=== PATIENT | female | born 1950 | race Caucasian/White ===

== ENCOUNTER → 2017-03-29 | Outpatient (CLI) | payer OTHER | END | disposition home or self-care (01) | LOC: C.LABSPEC 17:37 | PROVIDERS: ATTEND Urology | DX: N30.10 Interstitial cystitis (chronic) without hematuria (principal); N39.0 Urinary tract infection, site not specified ==

== ENCOUNTER 2025-02-05 10:11 | Observation (INO) ==
--- NOTE | 2025-02-05 10:25 | Emergency Department Note ---
Impression & Plan Atrial fibrillation with RVR, Dizziness ED Provider Note NAME: KWADWO FONTANEZ AGE: 74 SEX: F : 1950 ARRIVES VIA: Ambulance INFORMANT: Patient ED PROVIDER(S): Félix Whitney DO CHIEF COMPLAINT: Dizzy and palpitations HPI: Patient is a 74-year-old female who presents to the ER with a past medical history of GERD, hypertension and hyperlipidemia who presents to the ER for dizziness which has been off and on for the past 4 weeks. She notes it comes and goes and does have a history of Mnire's. She notes that today she felt her heart racing this morning. She went to her PCP was found to be in A-fib. She was brought in by EMS. She was going in and out of [facility] on multiple occasions. Denies any chest pain or shortness of breath. No belly pain. No nausea, vomiting, or diarrhea. No dysuria, urgency, or frequency. ADDITIONAL HISTORY OBTAINED: Per HPI Chronic Medical/Social Conditions Affecting Care: Per HPI PAST MEDICAL HISTORY:See Below PAST SURGICAL HISTORY:See Below FAMILY HISTORY:See Below SOCIAL HISTORY:See Below HOME MEDICATIONS:See Below ALLERGIES:See Below VITALS:See Below PHYSICAL EXAMINATION: GENERAL: Sitting up in bed, alert, well appearing, well nourished, no distress, non-toxic EYE EXAM: normal conjunctiva. PERRL and EOM's grossly intact. OROPHARYNX: mucous membranes are moist NECK: supple, no nuchal rigidity, no adenopathy, non-tender LUNGS: Clear to auscultation. Normal chest wall mechanics HEART: no murmurs, S1 normal and S2 normal ABDOMEN: abdomen soft, non-tender, normo-active bowel sounds, no masses, no rebound or guarding. UPPER EXTREMITIES: upper extremities are grossly normal. LOWER EXTREMITIES: No pitting edema. NEURO EXAM: Normal sensorium, cranial nerves II-XII grossly intact, normal speech, no gross weakness of arms, no gross weakness of legs. MEDICAL DECISION MAKING: Patient is a 74-year-old female who presents ER for above-stated complaint. IV was established and blood work was obtained. Additional history from EMS notes the patient has been in and out of A-fib several times on transport. Labs showed no significant leukocytosis or anemia. BMP along with LFTs bilirubin and lipase is unremarkable. Troponin was negative. TSH unremarkable. EKG consistent with A-fib with RVR. Patient was given Cardizem drip and placed on Cardizem bolus of 10. Heart rate trended down from 160s to 110. Chest x-ray was unremarkable. Case was discussed with the hospitalist for further evaluation management treatment of A-fib with RVR. Consults/Care Managements Discussions: Per [facility] Triage Nursing notes reviewed. Limited review of prior medical records performed Vital Signs: reviewed and remarkable for tachy Differential diagnosis: Cardiac ischemia, aortic dissection, pulmonary embolism, pneumothorax, pneumonia, pericarditis, myocarditis, esophageal rupture, GERD, cholecystitis, pancreatitis, musculoskeletal, as well as other pathologies. ER treatment provided: See below Diagnostics interpreted by me include EKG and cardiac monitoring as listed below: -Cardiac Monitoring: An order was placed for continuous cardiac monitoring. The monitor shows a rate of 140 with A-fib rhythm. -ECG: A-fib rate of 143 Left axis No PVCs QTc 463 EKG #2 A-fib with a variable block rate of 93 Left axis PVCs QTc 445 -Laboratory studies:Interpreted by me as stated above in MDM and shown below. Imaging studies: Xrays: As interpreted by me: Portable AP upright 1 view of the chest shows no focal infiltrate CTs show: CT head was negative per radiology Procedures:none Critical Care: I have personally spent 55 minutes of critical care time in the direct management of this patient. This includes bedside care, interpretation of diagnostic studies, and testing, discussion with consultants, patient, and family members, and other required patient management activities. This 55 minutes is in excess of all separately billable procedures. Past Med/Surg History Problem List (Updated 02/05/25 @ 14:49 by Félix Whitney DO) Dizziness (Acute) Atrial fibrillation with RVR (Acute) Recurrent UTI Positive colorectal cancer screening using Cologuard test GERD (gastroesophageal reflux disease) Hypothyroidism Voice hoarseness Chronic rhinitis Microscopic hematuria Interstitial cystitis (Acute) Hypercholesterolemia (Acute) Hypertension (Acute) Migraines (Acute) Medical History (Updated 02/05/25 @ 14:49 by Félix Whitney DO) Diverticulitis Meniere's disease Surgical History History of tonsillectomy and adenoidectomy History of cholecystectomy History of total hysterectomy Family History Aunt Breast cancer Grandfather (Maternal) Colorectal cancer Mother Myocardial infarction Father Myocardial infarction Denies family history of Ovarian cancer Prostate cancer Social History Smoking Status: Never smoker Second Hand Exposure: No; Do You Dip or Chew Tobacco: No; Hx Alcohol Use: No Hx Substance Use: No Preferred Language: Croatian Visual Impairment: No Limitations Hearing Ability: Use of Hearing Aid Beliefs That Will Affect Care: None marital status: Current Living Situation: Spouse current occupational status: retired How many Children do You have: 2 Feels Safe at Home: Yes Diet: low salt caffeine: No during the past year weight has: remained stable Dental Care, Regularly: Yes Physical Activity Frequency: Daily Seatbelt Use: always Sunscreen Use: Yes Allergies Allergies Allergy/AdvReac Type Severity Reaction Status Date / Time clarithromycin [From Biaxin] Allergy Verified 02/05/25 08:41 shellfish derived Allergy Verified 02/05/25 08:41 metronidazole [From Flagyl] AdvReac Intermediate Nausea Verified 02/05/25 08:41 Home Meds Home Medications Medication Instructions Recorded Confirmed potassium chloride 20 mEq 20 meq PO BID 09/26/23 02/05/25 tablet,extended release bisacodyl 5 mg tablet,delayed 10 mg PO DAILY 11/27/24 02/05/25 release (Dulcolax (bisacodyl)) cholecalciferol (vitamin D3) 50 50 mcg PO DAILY 11/27/24 02/05/25 mcg (2,000 unit) capsule fluticasone propionate 50 2 spray intranasal DAILY PRN 11/27/24 02/05/25 mcg/actuation nasal Allergic Reaction spray,suspension lxxqrwfo-owv-xkspt ac 400 1 tab PO DAILY 11/27/24 02/05/25 mcg-calcium carb 500 mg-vit K1 20 mcg tablet hydrochlorothiazide 25 mg tablet 25 mg PO DAILY 12/12/24 02/05/25 levothyroxine 50 mcg tablet 50 mcg PO DAILY 01/30/25 02/05/25 pentosan polysulfate sodium 100 mg 100 mg PO TID 01/30/25 02/05/25 capsule (Elmiron) CMPD betahistine 16 mg PO 3XD 02/05/25 02/05/25 Previous Rx's Medication Instructions Recorded azelastine 137 mcg (0.1 %) nasal 2 spray intranasal BID PRN nasal 02/20/24 spray congestion #30 mL ipratropium bromide 21 mcg (0.03 2 spray intranasal TID PRN 02/20/24 %) nasal spray postnasal drip #30 mL Results & Data (ED) Vital Signs Vital Signs - 24 hr 02/05/25 10:20 02/05/25 10:23 02/05/25 11:12 Temperature 36.9 C Temperature Source Oral Pulse Rate 146 H 160 H 126 H Pulse Rate from SpO2 Sensor 111 H Respiratory Rate 20 16 Respiratory Effort / Characteristics Non-Labored Spontaneous Respiratory Depth Normal Respiratory Pattern Regular Blood Pressure 142/118 H 145/67 H Blood Pressure Mean 126 93 Pulse Oximetry 99 97 Oxygen Delivery Method Room Air Oxygen Flow Rate Sepsis Recent Fever Within 48 Hours No Sepsis New/Unexplained Change in Mental Status No Sepsis Action Taken by Nursing No Action Required 02/05/25 11:15 02/05/25 11:30 02/05/25 11:30 Temperature Temperature Source Pulse Rate 109 H 83 109 H Pulse Rate from SpO2 Sensor 93 H 85 Respiratory Rate 22 18 Respiratory Effort / Characteristics Respiratory Depth Respiratory Pattern Blood Pressure 136/70 Blood Pressure Mean 89 Pulse Oximetry 96 97 Oxygen Delivery Method Oxygen Flow Rate Sepsis Recent Fever Within 48 Hours Sepsis New/Unexplained Change in Mental Status Sepsis Action Taken by Nursing 02/05/25 11:45 02/05/25 12:00 02/05/25 12:18 Temperature Temperature Source Pulse Rate 97 H 98 H 103 H Pulse Rate from SpO2 Sensor 104 H 79 100 H Respiratory Rate 19 23 19 Respiratory Effort / Characteristics Respiratory Depth Respiratory Pattern Blood Pressure 142/71 H 131/80 Blood Pressure Mean 94 97 Pulse Oximetry 96 97 99 Oxygen Delivery Method Nasal Cannula Oxygen Flow Rate 4 Sepsis Recent Fever Within 48 Hours Sepsis New/Unexplained Change in Mental Status Sepsis Action Taken by Nursing 02/05/25 12:30 02/05/25 12:30 02/05/25 12:30 Temperature Temperature Source Pulse Rate 97 H Pulse Rate from SpO2 Sensor 85 Respiratory Rate 18 Respiratory Effort / Characteristics Respiratory Depth Respiratory Pattern Blood Pressure 132/62 132/62 Blood Pressure Mean 89 89 Pulse Oximetry 98 Oxygen Delivery Method Oxygen Flow Rate Sepsis Recent Fever Within 48 Hours Sepsis New/Unexplained Change in Mental Status Sepsis Action Taken by Nursing Laboratory Data 02/05/25 10:22 02/05/25 10:22 Lab Results 02/05/25 Range/Units 10:22 WBC 7.37 (4.8-10.8) K/ul RBC 5.05 (4.20-5.40) M/uL Hgb 14.1 (12.0-16.0) g/dl Hct 41.5 (37.0-47.0) % MCV 82.2 (80.0-100.0) fL MCH 27.9 (25.0-34.0) pg MCHC 34.0 (32.0-36.0) g/dL RDW Std Deviation 38.7 (36.4-46.3) fL RDW Coeff of [place] 12.9 (11.5-14.5) % Plt Count 228 (130-400) K/uL MPV 10.1 (9.4-12.4) fL Immature Gran % (Auto) 0.4 % Neut % (Auto) 81.0 % Lymph % (Auto) 13.0 % [place] % (Auto) 4.3 % Eos % (Auto) 0.4 % Baso % (Auto) 0.9 % Neut # (Auto) 5.96 (1.40-6.50) K/uL Lymph # (Auto) 0.96 L (1.20-3.40) K/uL [place] # (Auto) 0.32 (0.11-0.59) K/uL Eos # (Auto) 0.03 (0.00-0.50) K/uL Baso # (Auto) 0.07 (0.00-0.20) K/uL Immature Gran # (Auto) 0.03 (0.01-0.20) K/uL Sodium 136 (136-145) mmol/L Potassium 3.5 (3.5-5.1) mmol/L Chloride 103 (98-107) mmol/L Carbon Dioxide 27 (21-32) mmol/L Anion Gap 6 (3-11) BUN 10 (6-23) mg/dl Creatinine 0.64 (0.6-1.2) mg/dl Est Cr Clr Drug Dosing 64.8 ml/min eGFR 93.26 BUN/Creatinine Ratio 15.6 (10-20) Glucose 138 H (70-99(Fasting)) mg/dl Calcium 9.0 (8.6-10.3) mg/dl Magnesium 2.1 (1.7-2.4) mg/dl Total Bilirubin 0.6 (0.2-1.0) mg/dl AST 19 (13-39) U/L ALT 13 (7-52) U/L Alkaline Phosphatase 71 (34-104) U/L Troponin I High Sens 7.8 (0-14) pg/ml Total Protein 6.9 (6.0-8.3) gm/dl Albumin 4.3 (3.4-5.0) gm/dl Globulin 2.6 (2.5-4.0) gm/dl Albumin/Globulin Ratio 1.7 (0.9-2) Lipase 25 (11-82) U/L TSH 1.703 (0.300-4.500) uIu/ml Administered Medications Diltiazem HCl 125 mg/ Dextrose 125 mls @ 10 mls/hr IV .[id number] [facility]; Protocol Stop: 03/07/25 10:29 Last Titration: 02/05/25 11:00 Dose: 10 mg/hr, 10 mls/hr Documented By: HONEY Co-signed By: ARELIS Admin: 02/05/25 10:40 Dose: 5 mg/hr, 5 mls/hr Documented By: HONEY Co-signed By: ARELIS Discontinued Medications Apixaban (Apixaban 5 Mg Tablet) 5 mg PO ONE ONE Stop: 02/05/25 12:46 Last Admin: 02/05/25 12:51 Dose: 5 mg Documented By: HONEY Diltiazem HCl (Diltiazem Hcl 5 Mg/Ml 5 Ml Vial) 10 mg IV NOW STA Stop: 02/05/25 10:20 Last Admin: 02/05/25 10:38 Dose: 10 mg Documented By: HONEY Co-signed By: ARELIS Miscellaneous (Stat Iv Infusion Titration Per Protocol) 1 each N/A NOW STA Stop: 02/05/25 10:20 Last Admin: 02/05/25 10:44 Dose: 1 each Documented By: HONEY Imaging Data Radiologist's Impression: Chest X-Ray 02/05/25 10:19 XR chest 1V portable CLINICAL HISTORY: Chest pain, nonspecific COMPARISON STUDY: None FINDINGS: Heart size and pulmonary vasculature are normal. No consolidation or pleural effusion. No pneumothorax. IMPRESSION: No acute findings. ACT 112: Negative or not required by law. Electronically signed by: Pacheco Reina M.D. 02/05/2025 11:[address] 02/05/25 10:19 CT head/brain wo con CLINICAL HISTORY: dizzy. TECHNIQUE: Multiple axial CT images of the head were obtained without contrast. A dose lowering technique was utilized adhering to the principles of ALARA. CT DOSE: 625.8 mGy.cm COMPARISON: None FINDINGS: No intracranial hemorrhage seen. No mass effect, midline shift, or hydrocephalus. There are mild chronic small vessel ischemic changes. No skull fracture seen. Visualized paranasal sinuses are clear. No mastoid effusion. IMPRESSION: No acute findings. ACT 112: Negative or not required by law. The above report was generated using voice recognition software. It may contain grammatical, syntax or spelling errors. Electronically signed by: Pacheco Reina M.D. 02/05/2025 11:11 AM Discharge Plan Visit Data Chief Complaint: Cardiac Assessment Stated Complaint: DIZZINESS, NAUSEA, CARDIAC ASSESSMENT ED Provider: Félix Whitney Discharge Problem: Atrial fibrillation with RVR, Dizziness Patient Disposition: Admitted As Inpatient Condition: Serious Discharge Instructions Interventions: ED Discharge Assessment Last Done: 02/05/25 14:11
[2025-02-05 10:42] LABS: Hematocrit (blood only) 41.5 % (37.0-47.0); Hemoglobin 14.1 g/dl (12.0-16.0); Immature Granulocytes # (auto) 0.03 K/uL (0.01-0.20); Immature Granulocytes % (auto) 0.4 %; Mean Corpuscular Hemoglobin 27.9 pg (25.0-34.0); Mean Corpuscular Volume 82.2 fL (80.0-100.0); Platelet Count 228 K/uL (130-400); RDW Standard Deviation 38.7 fL (36.4-46.3); Red Blood Count 5.05 M/uL (4.20-5.40); White Blood Count 7.37 K/ul (4.8-10.8)
[2025-02-05] MEDS: STAT IV Infusion **Titration per Protocol STA (10:44)
[2025-02-05 10:51] LABS: Alanine Aminotransferase 13.0 U/L (7-52); Albumin Globulin Ratio 1.7 (0.9-2); Albumin Level 4.3 gm/dl (3.4-5.0); Alkaline Phosphatase 71.0 U/L (34-104); Anion Gap 6.0 (3-11); Bilirubin,Total 0.6 mg/dl (0.2-1.0); Blood Urea Nitrogen 10.0 mg/dl (6-23); Calcium 9.0 mg/dl (8.6-10.3); Carbon Dioxide 27.0 mmol/L (21-32); Chloride 103.0 mmol/L (98-107); Creatinine Clr Calc Pharmacy 64.8 ml/min; Globulin 2.6 gm/dl (2.5-4.0); Glucose 138.0 mg/dl (70-99(Fasting)); Lipase 25.0 U/L (11-82); Potassium 3.5 mmol/L (3.5-5.1); Sodium 136.0 mmol/L (136-145); Total Protein 6.9 gm/dl (6.0-8.3)
--- NOTE | 2025-02-05 11:12 | CT Scan Report ---
CT head/brain wo con CLINICAL HISTORY: dizzy. TECHNIQUE: Multiple axial CT images of the head were obtained without contrast. A dose lowering tech nique was utilized adhering to the principles of ALARA. CT DOSE: 625.8 mGy.cm COMPARISON: None FINDINGS: No intracranial hemorrhage seen. No mass effect, midline shift, or hydrocephalus. There are mild chronic small vessel ischemic changes. No skull fracture seen. Visualized paranasal sinuses are clear. No mastoid effusion. IMPRESSION: No acute findings. ACT 112: Negative or not required by law. The above report was generated using voice recognition software. It may contain grammatical, syntax o r spelling errors. Electronically signed by: Pacheco Reina M.D. 02/05/2025 11:11 AM
--- NOTE | 2025-02-05 11:23 | XRay Report ---
XR chest 1V portable CLINICAL HISTORY: Chest pain, nonspecific COMPARISON STUDY: None FINDINGS: Heart size and pulmonary vasculature are normal. No consolidation or pleural effusion. No p neumothorax. IMPRESSION: No acute findings. ACT 112: Negative or not required by law. Electronically signed by: Pacheco Reina M.D. 02/05/2025 11:22 AM
--- NOTE | 2025-02-05 12:48 | History & Physical Report ---
"<Statement entered by Mag Bryant MD - 02/05/25 15:51> I have reviewed vital signs, chart notes, labs and imaging. I have personally seen, evaluated and examined the patient. I have also discussed the management of the patient with the ROBERTA and I agree with the exam findings documented in the history and physical examination and the documented assessment and plan unless otherwise stated below. She feels much better. No CP or dyspnea. No lightheadedness and tinnitus back at baseline. TSH 1.7 On my exam she appears comfortable eating lunch. Mildly tachycardic and irregular without murmur. Lungs are CTAB and normal WOB. LE wwp and no edema A/P: New onset rapid afib coming under control with dilt drip - transition to po dilt or metoprolol in AM if rate controlled Started apixaban TTE pending Cardiology referral Date of Service February 05, 2025 Assessment & Plan (1) Atrial fibrillation with RVR: (2) Hypertension: (3) Hypothyroidism: (4) Interstitial cystitis: Haja Bennett is a 74-year-old female with a past medical history of hypertension, hyperlipidemia, interstitial cystitis, hypothyroid and Mnire's disease who presents to the hospital after evaluation in her PCP office that revealed an EKG that showed A-fib with RVR. #A-fib RVR | HTN - likely onset 02/04, no personal history but family history. Does have a history of hypothyroidism then was told she needed a CPAP after sleep study but this was never arranged. With dizziness on arrival that has improved, and head CT without acute findings. Continue diltiazem drip CHADVASC: 3 - anticoagulation initiated with Eliquis Consult cardiology, especially with extensive family history check mag and TSH Check echo Recommend repeat outpatient sleep study, If prolonged stay could consider overnight pulse ox Hold hydrochlorothiazide for more blood pressure room with suspected beta- bridger addition #Hypothyroidcontinue Synthroid Check TSH #Interstitial cystitis - With recurrent infections, reports has been on 7 different antibiotics since October. Had follow-up appointment with Dr. Stark day of admission, will need this rescheduled. Continue Elmiron TID dispo: Admit to PCU DVT prophylaxis: Eliquis initiated updated at bedside on admission 02/05 History of Present Illness Chief Complaint: A-fib RVR Primary Care Provider: DO Sabrina Roche is a 74-year-old female with a past medical history of hypertension, hyperlipidemia, interstitial cystitis, hypothyroid and Mnire's disease who presents to the hospital after evaluation in her PCP office that revealed an EKG that showed A-fib with RVR. All reports that last night she had ringing in your ears that was more severe than she has ever had in the past, she has baseline ringing in her ears from her Mnire's disease. She reports she felt like the bed was moving up and down with how intensely her heart was beating and she was covered in sweat. she also was extremely dizzy and had to hold onto the mitchell/furniture to ambulate. She called her PCP for an appointment this morning and was found to have A-fib RVR and sent to the ER. She denies history of A-fib but has extensive cardiac family history. One of her siblings has had A-fib, 2 siblings have had open heart surgery and her mother from a heart attack at 65. Upon assessment in the ER she reports that the ringing in her ears has returned back to its baseline and the dizziness has resolved. She no longer feels like her heart is beating out of her chest. She denies any chest pain or shortness of breath. Appetite has been good. She reports she had a sleep study 2 to 3 years ago that told her she needed a CPAP but the company never contacted her. No EtOH or tobacco use. Recently had her interstitial cystitis medicine increased to 3 times daily. ED course: Cardizem drip started Allergies Allergy/AdvReac Type Severity Reaction Status Date / Time clarithromycin [From Biaxin] Allergy Verified 02/05/25 08:41 shellfish derived Allergy Verified 02/05/25 08:41 metronidazole [From Flagyl] AdvReac Intermediate Nausea Verified 02/05/25 08:41 Home Medications Medication Instructions Recorded Confirmed Type potassium chloride 20 mEq 20 meq PO BID 09/26/23 02/05/25 History tablet,extended release azelastine 137 mcg (0.1 %) nasal 2 spray intranasal BID PRN nasal 02/20/24 02/05/25 Rx spray congestion #30 mL ipratropium bromide 21 mcg (0.03 2 spray intranasal TID PRN 02/20/24 02/05/25 Rx %) nasal spray postnasal drip #30 mL bisacodyl 5 mg tablet,delayed 10 mg PO DAILY 11/27/24 02/05/25 History release (Dulcolax (bisacodyl)) cholecalciferol (vitamin D3) 50 50 mcg PO DAILY 11/27/24 02/05/25 History mcg (2,000 unit) capsule fluticasone propionate 50 2 spray intranasal DAILY PRN 11/27/24 02/05/25 History mcg/actuation nasal Allergic Reaction spray,suspension enwhdhru-tgt-bnpmo ac 400 1 tab PO DAILY 11/27/24 02/05/25 History mcg-calcium carb 500 mg-vit K1 20 mcg tablet hydrochlorothiazide 25 mg tablet 25 mg PO DAILY 12/12/24 02/05/25 History levothyroxine 50 mcg tablet 50 mcg PO DAILY 01/30/25 02/05/25 History pentosan polysulfate sodium 100 mg 100 mg PO TID 01/30/25 02/05/25 History capsule (Elmiron) CMPD betahistine 16 mg PO 3XD 02/05/25 02/05/25 History Past Med/Surg History Problem List (Updated 02/05/25 @ 12:48 by Liz Azar PA-C) Atrial fibrillation with RVR Recurrent UTI Positive colorectal cancer screening using Cologuard test GERD (gastroesophageal reflux disease) Hypothyroidism Voice hoarseness Chronic rhinitis Microscopic hematuria Interstitial cystitis (Acute) Hypercholesterolemia (Acute) Hypertension (Acute) Migraines (Acute) Medical History (Updated 02/05/25 @ 12:48 by Liz Azar PA-C) Diverticulitis Meniere's disease Surgical History History of tonsillectomy and adenoidectomy History of cholecystectomy History of total hysterectomy Family History Aunt Breast cancer Grandfather (Maternal) Colorectal cancer Mother Myocardial infarction Father Myocardial infarction Denies family history of Ovarian cancer Prostate cancer Social History Smoking Status: Never smoker Second Hand Exposure: No; Do You Dip or Chew Tobacco: No; Hx Alcohol Use: No Hx Substance Use: No Preferred Language: Kiswahili Visual Impairment: No Limitations Hearing Ability: Use of Hearing Aid Beliefs That Will Affect Care: None marital status: Current Living Situation: Spouse current occupational status: retired How many Children do You have: 2 Feels Safe at Home: Yes Diet: low salt caffeine: No during the past year weight has: remained stable Dental Care, Regularly: Yes Physical Activity Frequency: Daily Seatbelt Use: always Sunscreen Use: Yes Review of Systems Review of Systems: All systems reviewed & are unremarkable except as noted in Subjective Physical Exam Physical Exam: General: NAD, VS as above, sitting up in bed, present at bedside Resp: normal respiratory effort, lungs clear to auscultation CV: irregularly irregular, no murmur, Abd: normal bowel sounds, non tender, soft Extremities: Moves all extremities, no edema Neuro: A&O x3, Skin: intact, no lesions noted Results & Data Results & Data Vital Signs (Past 12 Hours) Vital Signs Temp Pulse Resp BP Pulse Ox O2 Del Method O2 Flow Rate 02/05/25 12:00 98 H 23 131/80 97 Nasal Cannula 4 02/05/25 11:45 97 H 19 142/71 H 96 02/05/25 11:30 109 H 136/70 02/05/25 11:30 83 18 97 02/05/25 11:15 109 H 22 96 02/05/25 11:12 126 H 16 145/67 H 97 02/05/25 10:23 98.4 F 160 H 20 142/118 H 99 Room Air 02/05/25 10:20 146 H Laboratory Results CBC CBC and chemistry reviewed, lipase reviewed, troponin reviewed Diagnostic Findings chest x-ray and head CT reviewed Code Status & VTE Plan VTE Prophylaxis Plan VTE Prophylaxis will be ordered: Yes PG Care Time/CCT Total # of Minutes Spent Total Time Spent with Patient: Total time spent is greater than 50% in coordination of care (as documented) at patient's floor/unit and/or counseling patient: Coding Level of Care Code 77501 INT INP/OBS CARE 3/75MIN Diagnoses Atrial fibrillation with RVR I48.91 Hypertension I10 Hypothyroidism E03.9 Interstitial cystitis N30.10"
[2025-02-05] MEDS: APIXABAN 5 MG TABLET PO ONE (12:51)
[2025-02-05 12:54] LABS: Magnesium 2.1 mg/dl (1.7-2.4)
[2025-02-05 13:10] LABS: Thyroid Stimulating Hormone 1.703 uIu/ml (0.300-4.500)
[2025-02-05] MEDS ORDERED: POLYETHYLENE (MIRALAX) 17 GM PACK PO PRN (13:43)
[2025-02-05] MEDS ORDERED: FLUTICASONE PROPIONATE NA SPR 16 GM BTL PRN (13:43)
[2025-02-05] MEDS ORDERED: ACETAMINOPHEN 325 MG TAB PO PRN (13:43)
[2025-02-05] MEDS ORDERED: MELATONIN 3 MG TAB PO PRN (13:43)
[2025-02-05] MEDS ORDERED: IPRATROPIUM BROMIDE NASAL SPRAY 0.03% 30 ML NAE PRN (13:43)
[2025-02-05] MEDS ORDERED: AZELASTINE HCL 0.1% NASAL 200 SPRAYS/27,400 MCG BTL PRN (13:43)
--- NOTE | 2025-02-05 16:18 | XCELERA ---
[id number]
--- NOTE | 2025-02-05 16:19 | Cardiology Consultation ---
Date of Consultation February 05, 2025 Assessment & Plan (1) Paroxysmal atrial fibrillation: (2) Hypertension: (3) Sleep apnea: Plan ASSESSMENT/PLAN: 1. Paroxysmal atrial fibrillation: We discussed the diagnosis. Quite symptomatic however with improved rate control on diltiazem drip, symptoms resolved and she did not notice conversion this afternoon to sinus rhythm. We discussed treatment strategies. Likely had atrial fibrillation a few years ago with similar symptoms. Metoprolol 25 mg twice daily and can discontinue diltiazem drip. Eliquis 5 mg twice daily for stroke risk reduction. Monitor CBC and renal function. If A-fib burden increases, affecting quality of life more frequently, would consider antiarrhythmic therapy or ablation. 2. Hypertension: Blood pressure adequately controlled. Adding beta-bridger for atrial fibrillation as above. 3. Sleep apnea. Recommended that she follow-up with sleep medicine to arrange for appropriate treatment, which may improve overall A-fib burden. 4. Disposition: Can be discharged home from a cardiology perspective. Will arrange outpatient cardiology follow-up. Plan of care communicated with Dr. Bryant of the primary hospitalist service. Today's visit was 55 minutes in duration which includes [id number] time, counseling patient, coordinating care, reviewing records, and completing documentation. Thank you for allowing me to participate in the care of your patient. Please call for any other questions or concerns. Sincerely, Errol Larson M.D. History of Present Illness Reason for Consultation: Atrial fibrillation Requesting Physician: Liz Azar Attending Physician: Mag Bryant MD History of Present Illness Mrs. Salazar is a very pleasant 74-year-old female with a history significant for hypertension, sleep apnea, hypothyroidism, dyslipidemia and Mnire's disease. She was hospitalized on 02/05/2025 with new onset atrial fibrillation with rapid ventricular response. On 02/04/2025, she felt ringing in her ears and dizzy, consistent with her histor y of Mnire's disease. She went to bed but at 4 AM on 02/05/2025, she woke up with palpitations described as a pounding sensation as well as feeling diaphoretic. She went to her PCP office who diagnosed atrial fibrillation and was referred to the ER for hospitalization. She was noted to be in A-fib with RVR on presentation but he was eventually placed on diltiazem drip. On diltiazem drip, her heart rate improved and her symptoms resolved despite remaining in atrial fibrillation throughout most of the day. She had a similar episode of palpitations a few years ago lasting approximately 30 minutes but otherwise denies any significant other palpitations. She has intermittent chest pain when she consumes water and her voice becomes weak during such symptoms and hydration. She walks 3 dogs at separate times throughout the day covering greater than 1 mile and does so without exertional chest pain or shortness of breath. She states that her Cologuard was recently abnormal and she is awaiting a colonoscopy but denies shelly melena, hematochezia, or hematuria. She denies syncope, edema, orthopnea. Review of systems: As above. Family history: Sister with atrial fibrillation. Brother with CABG in his 70s. Father with CABG. Social history: She denies tobacco, alcohol, or drug abuse. She lives at home with her . She has 2 sons who live locally. She was unaccompanied. Allergies Allergy/AdvReac Type Severity Reaction Status Date / Time clarithromycin [From Biaxin] Allergy Verified 02/05/25 08:41 shellfish derived Allergy Verified 02/05/25 08:41 metronidazole [From Flagyl] AdvReac Intermediate Nausea Verified 02/05/25 08:41 Home Medications Medication Instructions Recorded Confirmed Type potassium chloride 20 mEq 20 meq PO BID 09/26/23 02/05/25 History tablet,extended release azelastine 137 mcg (0.1 %) nasal 2 spray intranasal BID PRN nasal 02/20/24 02/05/25 Rx spray congestion #30 mL ipratropium bromide 21 mcg (0.03 2 spray intranasal TID PRN 02/20/24 02/05/25 Rx %) nasal spray postnasal drip #30 mL bisacodyl 5 mg tablet,delayed 10 mg PO DAILY 11/27/24 02/05/25 History release (Dulcolax (bisacodyl)) cholecalciferol (vitamin D3) 50 50 mcg PO DAILY 11/27/24 02/05/25 History mcg (2,000 unit) capsule fluticasone propionate 50 2 spray intranasal DAILY PRN 11/27/24 02/05/25 History mcg/actuation nasal Allergic Reaction spray,suspension zvaabwtn-iiw-eqeer ac 400 1 tab PO DAILY 11/27/24 02/05/25 History mcg-calcium carb 500 mg-vit K1 20 mcg tablet hydrochlorothiazide 25 mg tablet 25 mg PO DAILY 12/12/24 02/05/25 History levothyroxine 50 mcg tablet 50 mcg PO DAILY 01/30/25 02/05/25 History pentosan polysulfate sodium 100 mg 100 mg PO TID 01/30/25 02/05/25 History capsule (Elmiron) CMPD betahistine 16 mg PO 3XD 02/05/25 02/05/25 History Problem List (Updated 02/05/25 @ 21:22 by Victorino Larson MD) Sleep apnea Paroxysmal atrial fibrillation Dizziness (Acute) Atrial fibrillation with RVR (Acute) Recurrent UTI Positive colorectal cancer screening using Cologuard test GERD (gastroesophageal reflux disease) Hypothyroidism Voice hoarseness Chronic rhinitis Microscopic hematuria Interstitial cystitis (Acute) Hypercholesterolemia (Acute) Hypertension (Acute) Migraines (Acute) Patient History Medical History Diverticulitis Meniere's disease Surgical History History of tonsillectomy and adenoidectomy History of cholecystectomy History of total hysterectomy Family History Aunt Breast cancer Grandfather (Maternal) Colorectal cancer Mother Myocardial infarction Father Myocardial infarction Denies family history of Ovarian cancer Prostate cancer Social History Smoking Status: Never smoker Second Hand Exposure: No; Do You Dip or Chew Tobacco: No; Hx Alcohol Use: No Hx Substance Use: No Preferred Language: Greek Communication Ability: Effective Visual Impairment: No Limitations Hearing Ability: Use of Hearing Aid [employer] Worker Apprentice Required: No Beliefs That Will Affect Care: None marital status: Current Living Situation: Spouse current occupational status: retired How many Children do You have: 2 Feels Safe at Home: Yes Safety Concerns: Feels Safe At This Time Diet: low salt caffeine: No during the past year weight has: remained stable Dental Care, Regularly: Yes Physical Activity Frequency: Daily Seatbelt Use: always Sunscreen Use: Yes Assistive Devices: None Physical Exam Physical Exam: Gen.: No acute distress. Alert and oriented. HEENT: Anicteric sclera. Neck: No JVD. No bruits. Normal carotid upstrokes bilaterally. Cardiac: Regular. Normal S1-S2. No murmurs, rubs, or gallops. Pulmonary: Clear to auscultation bilaterally without wheezes, rales, or rhonchi. Abdomen: Soft, nontender, nondistended, with normoactive bowel sounds. No bruits noted. Extremities: 2+ radial pulses bilaterally. 2+ posterior tibialis pulses bilaterally. No edema or cyanosis. Psychiatric: Affect appears appropriate. Results & Data Vital Signs (Past 12 Hours) Vital Signs Temp Pulse Resp BP Pulse Ox O2 Del Method O2 Flow Rate 02/05/25 14:11 Room Air 02/05/25 13:35 110 H 02/05/25 13:06 82 19 98 02/05/25 13:00 134/72 02/05/25 12:57 95 H 18 98 02/05/25 12:51 98 H 16 97 02/05/25 12:30 97 H 18 98 02/05/25 12:30 132/62 02/05/25 12:30 132/62 02/05/25 12:18 103 H 19 99 02/05/25 12:00 98 H 23 131/80 97 Nasal Cannula 4 02/05/25 11:45 97 H 19 142/71 H 96 02/05/25 11:30 109 H 136/70 02/05/25 11:30 83 18 97 02/05/25 11:15 109 H 22 96 02/05/25 11:12 126 H 16 145/67 H 97 02/05/25 10:23 36.9 C 160 H 20 142/118 H 99 Room Air 02/05/25 10:20 146 H Laboratory Results Laboratory Results - last 24 hr 02/05/25 10:22 WBC 7.37 RBC 5.05 Hgb 14.1 Hct 41.5 MCV 82.2 MCH 27.9 MCHC 34.0 RDW Std Deviation 38.7 RDW Coeff of [place] 12.9 Plt Count 228 MPV 10.1 Immature Gran % (Auto) 0.4 Neut % (Auto) 81.0 Lymph % (Auto) 13.0 Morgan % (Auto) 4.3 Eos % (Auto) 0.4 Baso % (Auto) 0.9 Neut # (Auto) 5.96 Lymph # (Auto) 0.96 L Morgan # (Auto) 0.32 Eos # (Auto) 0.03 Baso # (Auto) 0.07 Immature Gran # (Auto) 0.03 Sodium 136 Potassium 3.5 Chloride 103 Carbon Dioxide 27 Anion Gap 6 BUN 10 Creatinine 0.64 Est Cr Clr Drug Dosing 64.8 eGFR 93.26 BUN/Creatinine Ratio 15.6 Glucose 138 H Calcium 9.0 Magnesium 2.1 Total Bilirubin 0.6 AST 19 ALT 13 Alkaline Phosphatase 71 Troponin I High Sens 7.8 Total Protein 6.9 Albumin 4.3 Globulin 2.6 Albumin/Globulin Ratio 1.7 Lipase 25 TSH 1.703 Diagnostic Findings ECHO 02/05/25: 1. Normal left ventricular size with hyperdynamic systolic function. EF > 70%. No regional wall motion abnormalities. No left ventricular hypertrophy. 2. Normal right ventricular size and systolic function. 3. No significant valvular abnormalities. 4. Normal estimated right ventricular systolic pressure, assuming normal right atrial pressure. 5. Atrial fibrillation. 6. No prior study available for comparison. History and physical report reviewed. Telemetry personally viewed: Atrial fibrillation with rapid ventricular response converted to sinus rhythm on 02/05/2025 at 1557. ECG personally reviewed from 02/05/2025 at 1758: Sinus rhythm 75 bpm. Incomplete RBBB. Nonspecific ST/T wave abnormality. Labs reviewed and notable for stable renal function, normal potassium, normal blood counts, normal TSH, normal transaminase levels, normal magnesium. CT head report reviewed from 02/05/2025: No acute findings per radiology. Chest x-ray report reviewed from 02/05/2025: No acute findings.: Medications Administered Current Inpatient Medications Acetaminophen (Acetaminophen 325 Mg Tab) 650 mg PO Q4H PRN PRN Reason: Pain or Fever Stop: 03/07/25 13:42 Apixaban (Apixaban 5 Mg Tablet) 5 mg PO BID LESLIE Stop: 03/07/25 20:59 Last Admin: 02/05/25 20:06 Dose: 5 mg Azelastine HCl (Azelastine Hcl 0.1% Nasal 200 Sprays/27,400 Mcg Btl) 2 sprays NA BID PRN PRN Reason: nasal congestion Stop: 03/07/25 13:42 Bisacodyl (Bisacodyl 5 Mg Tabec) 10 mg PO DAILY LESLIE Stop: 03/08/25 08:59 Fluticasone Propionate (Fluticasone Propionate Na Spr 16 Gm Btl) 2 sprays NA DA ANSHU PRN PRN Reason: Allergic Reaction Stop: 03/07/25 13:42 Ipratropium [place] (Ipratropium [place] Nasal [place] 0.03% 30 Ml) 2 sprays MARVIN TID PRN PRN Reason: postnasal drip Stop: 03/07/25 13:42 Levothyroxine Sodium (Levothyroxine Sodium 50 Mcg Tablet) 50 mcg PO DAILYBB LESLIE Stop: 03/08/25 06:29 Melatonin (Melatonin 3 Mg Tab) 3 mg PO HS PRN PRN Reason: Sleep Stop: 03/07/25 13:42 Metoprolol Tartrate (Metoprolol Tartrate 25 Mg Tab) 25 mg PO BID LESLIE Stop: 03/08/25 08:59 Miscellaneous (Order Awaiting Action Pentosan Polysulfate Sodium [Elmiron] 100 Mg Capsule)) 1 each N/A QS LESLIE Stop: 03/07/25 15:59 Last Admin: 02/05/25 17:19 Dose: Not Given Polyethylene Glycol (Polyethylene (Miralax) 17 Gm Pack) 17 gm PO DAILY PRN PRN Reason: Constipation Stop: 03/07/25 13:42 PG Care Time/CCT Total # of Minutes Spent Total Time Spent with Patient: Total time spent is greater than 50% in coordination of care (as documented) at patient's floor/unit and/or counseling patient: Coding Level of Care Code 70037 INT INP/OBS CARE 2/55MIN Diagnoses Paroxysmal atrial fibrillation I48.0 Hypertension I10 Sleep apnea G47.30 Time Spent (min) 55
[2025-02-05] MEDS: METOPROLOL TARTRATE 25 MG TAB PO ONE (19:31)
[2025-02-05] MEDS: [UNRECOGNIZED DRUG - REMARK] ONE (20:06)
[2025-02-05] MEDS: APIXABAN 5 MG TABLET PO SCH (20:06)
[2025-02-05 23:01] VITALS: TEMP 97.7
[2025-02-06] MEDS: LEVOTHYROXINE SODIUM 50 MCG TABLET PO SCH (05:47)
[2025-02-06 07:00] LABS: Anion Gap 5.0 (3-11); Blood Urea Nitrogen 12.0 mg/dl (6-23); Calcium 9.4 mg/dl (8.6-10.3); Carbon Dioxide 29.0 mmol/L (21-32); Chloride 104.0 mmol/L (98-107); Creatinine Clr Calc Pharmacy 62.1 ml/min; Magnesium 2.2 mg/dl (1.7-2.4); Potassium 3.5 mmol/L (3.5-5.1); Sodium 138.0 mmol/L (136-145)
[2025-02-06 07:24] VITALS: BP 154/80; PULSE 56; RESP 18; O2SAT 96
[2025-02-06] MEDS: METOPROLOL TARTRATE 25 MG TAB PO SCH (08:34)
--- NOTE | 2025-02-06 09:36 | Communication Note ---
Date of Service: February 06, 2025 By CMS guidelines, a determination that the admission or continued stay is not medically necessary has been made by a member of the UR committee and a physician for this hospital stay, therefore a Code 44 will be completed and the Inpatient admission will be changed to outpatient.
--- NOTE | 2025-02-06 09:39 | Communication Note ---
Date of Service: February 06, 2025 By CMS guidelines, a determination that the admission or continued stay is not medically necessary has been made by a member of the UR committee and a physician for this hospital stay, therefore a Code 44 will be completed and the Inpatient admission will be changed to outpatient. Brad Kong MD Member, Utilization Review Committee
--- NOTE | 2025-02-06 13:49 | Discharge Summary ---
"Discharge Summary Date of Service February 06, 2025 Principal Dx & Hospital Course #1 = Principal Diagnosis (1) Atrial fibrillation with RVR: (2) Hypertension: (3) Hypothyroidism: (4) Interstitial cystitis: Haja Bennett is a 74-year-old female with a past medical history of hypertension, hyperlipidemia, interstitial cystitis, hypothyroid and Mnire's disease who presented to the hospital after evaluation in her PCP office that revealed an EKG that showed A-fib with RVR. #A-fib RVR | HTN - likely onset 02/04/25, no personal history but family history. Hx of hypothyroidism treated with Levothyroxine. Hx of reported snoring and sleep study in the past with rec for CPAP but initiation of treatment was never started. Associated dizziness on arrival to ED that spontaneously resolved with neg CT head imaging. Magnesium and TSH levels normal. Diltiazem infusion was initiated in ED for rate stability. CHADVASC: 3-anticoagulation initiated with Eliquis. With Diltiazem infusion she converted to NSR with confirmed f/u EKG at 1758 on 02/05/25 with NSR, VR 75bpm. Cardiology consulted-diltiazem drip discontinued with transition to Metoprolol BID and continuation of Eliquis for stroke reduction. Echo with normal left ventricular size with hyperdynamic systolic function, EF at greater than 70%, no regional wall motion abnormalities, no left ventricular hypertrophy, normal right ventricular size a nd systolic function, no significant valvular abnormalities, normal estimated right ventricular systolic pressure, atrial fibrillation. EKG this am at 0547 with SB 1st degree AVB rate of 57bpm. Telemetry monitoring overnight with brief episodes of sinus bradycardia in the 50s and this am with NSR in 60s. She feels much better and is without c/o dizziness, chest pain, dyspnea or palpitations. -her HCTZ was held on admission for anticipated BB addition, blood pressure stable on Metoprolol, ok to resume HCTZ upon discharge as this was also treating her Mnire's disease -d/c on metoprolol tartrate 25mg po BID, Eliquis 5mg po BID -f/u with cardiology upon discharge -f/u with sleep medicine: referral made with case management #Hypothyroidismcontinue Synthroid at home dosing -TSH 1.703 on 02/05/25 #Interstitial cystitis - With recurrent infections, reports has been on 7 different antibiotics since October, established with [facility] -had appointment with [facility] on day of admission, will need to reschedule -Continue Elmiron TID Admission HPI Per Admitting Provider Sabrina is a 74-year-old female with a past medical history of hypertension, hyperlipidemia, interstitial cystitis, hypothyroid and Mnire's disease who presents to the hospital after evaluation in her PCP office that revealed an EKG that showed A-fib with RVR. All reports that last night she had ringing in your ears that was more severe than she has ever had in the past, she has baseline ringing in her ears from her Mnire's disease. She reports she felt like the bed was moving up and down with how intensely her heart was beating and she was covered in sweat. she also was extremely dizzy and had to hold onto the mitchell/furniture to ambulate. She called her PCP for an appointment this morning and was found to have A-fib RVR and sent to the ER. She denies history of A-fib but has extensive cardiac family history. One of her siblings has had A-fib, 2 siblings have had open heart surgery and her mother from a heart attack at 65. Upon assessment in the ER she reports that the ringing in her ears has returned back to its baseline and the dizziness has resolved. She no longer feels like her heart is beating out of her chest. She denies any chest pain or shortness of breath. Appetite has been good. She reports she had a sleep study 2 to 3 years ago that told her she needed a CPAP but the company never contacted her. No EtOH or tobacco use. Recently had her interstitial cystitis medicine increased to 3 times daily. ED course: Cesar locke started Discharge Exam GENERAL APPEARANCE: A&O. Sitting comfortably in bed. NAD. SKIN: Normal color without rashes or lesions. Normal turgor. HEENT: Head AT/NC. Buccal mucosa is moist and pink. HEART: RRR without m/g/r LUNGS: Normal inspiratory effort. CTA without w/r/r ABDOMEN: No guarding or rigidity. Normoactive BS in all four quadrants. Abdomen soft and NT. EXTREMITIES: No edema, No peripheral cyanosis. Discharge Plan Discharge Items Patient Disposition: Home - Self-Care Reason For Visit: AFIB RVR Discharge Diagnosis: Atrial fibrillation with RVR Condition on Discharge: Good Activity: Resume your previous activity Non-emergency contact: Primary Care Provider Call non-emergency contact if: you have any medication questions and your symptoms worsen Follow-up/Referrals: Artemio Sears MD [Physician] - (Sleep medicine referral) Victorino Larson MD [Physician] - (Office will call you with appointment- message sent to cardiology) Silvio Muller DO [Primary Care Provider] - 02/11/25 11:00 am (Follow up in 1 week ) Diet: Regular Addtl Attending Provider Instructions: Mrs. Colon, You have been hospitalized for an irregular heart rhythm called atrial fibrillation. During your stay you were administered a medication through an IV to stabilize your heart rhythm and rate. You successfully converted to a normal heart rhythm with the medication you received through your IV and were started on an oral medication called Metoprolol. Metoprolol has helped you remain in a normal heart rhythm at your time of discharge. You will stay on this medication at home to regulate your heart rate and rhythm. You were also started on a medication called Eliquis which is a blood thinner to decrease your risk of stroke that can occur when you have a condition called atrial fibrillation due to the heart not beating regularly. You will stay on this medication at home. Medications: Your medication list has been reviewed and reconciled upon discharge to ensure accuracy and continuity of care. An updated list of all your medications is included with your hospital discharge paperwork. Please review this list closely, and make note of any changes. We sent a new medication called Metoprolol to your pharmacy. Take Metoprolol 25mg two times a day. You can take this medication when you return home in the evening. You can check your heart rate at home and if your heart rate is less than 50 and you have associated dizziness or lightheadedness please contact your family doctor. We also sent a new medication called Eliquis to your pharmacy. Take Eliquis 5mg two times a day. You can take this medication when you return home in the evening. Please see additional education information regarding Eliquis below regarding side effects and warnings while taking this medication. Take your medications as instructed; do not skip a dose of your medicines. Make sure all of your doctors know every medicine you are taking (including vuhw-khe-dlodqmj medicines, vitamins, and supplements). Call your primary care provider before taking any new medicines (including over- the-counter medicines, vitamins, and supplements), because some of these may interact with your current medications, or may make your symptoms worse. Tell your primary care provider if you cannot afford your medications. Activity: You can do normal everyday activities as your body allows. Take rest breaks if you feel tired. Do not overexert. Stop activity if you have pain, shortness of breath or feel dizzy. Follow-up appointments: Make an appointment with your primary care physician within one week of discharge. A copy of this summary will be sent to them. Every time you see your primary care physician, or any other doctor, bring your medication list, and a list of questions. CONTACT YOUR PRIMARY CARE PROVIDER if you experience any of the following: Shortness of breath or difficulty breathing Fevers or chills Feeling tired with normal activity or experiencing dizziness or fainting Difficulty following your treatment plan, or difficulty taking medications CALL 911 OR GO TO THE EMERGENCY DEPARTMENT if you experience any of the following: Severe abdominal pain or nausea/vomiting Severe chest pain, or chest pain that radiates (moves) to your jaw or arm Sudden, severe shortness of breath or difficulty breathing Here are some guidelines about taking Eliquis: Increased risk of blood clots if you stop taking Eliquis. Do not stop taking Eliquis without talking to your doctor.. Stopping Eliquis increases your risk of having a stroke. Increased risk of bleeding. Eliquis can cause bleeding which can be serious and may lead to . This is because Eliquis is a blood thinner medicine (anticoagulant) that lowers blood clotting. During treatment with Eliquis you are likely to bruise more easily, and it may take longer for bleeding to stop. If you ever cannot get bleeding to stop please report to the ER If you have a bruise that is large/painful or swollen you should also be seen by a medical provider Call your doctor or get medical help right away if you or your child develop any of these signs or symptoms of bleeding: unexpected bleeding or bleeding that lasts a long time, such as: nose bleeds that happen often unusual bleeding from the gums bleeding that is severe or you cannot control red, pink or brown urine bright red or black stools (looks like tar) cough up blood or blood clots vomit blood or your vomit looks like coffee grounds If you have a fall and hit your head, please come to the ER and get checked out. Being on a blood thinner increases your risk of brain bleeding with falls. Avoid high risk activities, such as: standing on tall ladders riding motorcycles anything where you are high risk for falls or trauma Avoid taking NSAIDs (pain medication) while you are taking a blood thinner. This includes: Ibuprofen, Aleve Advil, Naproxen. If you are ever unsure you can ask your doctor or pharmacist. Tylenol is SAFE to take. If you have any new or worsening chest pain or shortness of breath please return to the ER. Thank you for allowing us to participate in your care. Pending Studies at Discharge: No Stand-Alone Forms: My [facility], Smoking Cessation Medications and DC Order Prescriptions: New Eliquis 5 mg Tablet 5 mg PO BID 30 Days Qty: 60 0RF metoprolol tartrate 25 mg Tablet 25 mg PO BID Qty: 60 0RF Continued hydrochlorothiazide 25 mg tablet 25 mg PO DAILY levothyroxine 50 mcg tablet 50 mcg PO DAILY potassium chloride 20 mEq tablet extended release 20 meq PO BID azelastine 137 mcg (0.1 %) spray,non-aerosol 2 spray intranasal BID PRN (Reason: nasal congestion) Qty: 30 11RF Rx Instructions: administer into each nostril ipratropium bromide 21 mcg (0.03 %) spray,non-aerosol 2 spray intranasal TID PRN (Reason: postnasal drip) Qty: 30 11RF Rx Instructions: administer into each nostril CMPD betahistine 16 mg 16 mg PO 3XD Elmiron 100 mg capsule 100 mg PO TID cholecalciferol (vitamin D3) 50 mcg (2,000 unit) capsule 50 mcg PO DAILY bisacodyl [Dulcolax (bisacodyl)] 5 mg tablet,delayed release (DR/EC) 10 mg PO DAILY fluticasone propionate 50 mcg/actuation spray,suspension 2 spray intranasal DAILY PRN (Reason: Allergic Reaction) Rx Instructions: administer into each nostril xl-ofo-wslkq-calcium carb-K1 400 mcg-500 mg calcium-20 mcg tablet 1 tab PO DAILY Discharge Orders: Discharge Order (Routine); Ordered 02/06/25 Ordered By: Fely Cheng/Other Patient Handouts: AFib Dc Admission Data Admit Date/Time: 02/05/25 12:37 Attending Provider: Sky Couch Admit Provider: Mag Bryant Primary Care Provider: Silvio Muller Other Providers: Mag Bryant; Victorino Larson Other Interventions: Discharge Summary Assessment (RN) Last Done: 02/06/25 09:47 Hospital Stay Data Consultations 02/05/25 11:55 ED Decision to Admit Stat 02/05/25 12:30 Consult Cardiology Routine Diagnostic Imagining Performed 02/05/25 10:19 CT head/brain wo con Stat Pending Results Patient Have Any Pending Studies at Discharge: No Discharge Instructions Given to Patient (Per Discharging Provider) Mrs. Colon, Bryon have been hospitalized for an irregular heart rhythm called atrial fibrillation. During your stay you were administered a medication through an IV to stabilize your heart rhythm and rate. You successfully converted to a normal heart rhythm with the medication you received through your IV and were started on an oral medication called Metoprolol. Metoprolol has helped you remain in a normal heart rhythm at your time of discharge. You will stay on this medication at home to regulate your heart rate and rhythm. You were also started on a medication called Eliquis which is a blood thinner to decrease your risk of stroke that can occur when you have a condition called atrial fibrillation due to the heart not beating regularly. You will stay on this medication at home. Medications: Your medication list has been reviewed and reconciled upon discharge to ensure accuracy and continuity of care. An updated list of all your medications is included with your hospital discharge paperwork. Please review this list closely, and make note of any changes. We sent a new medication called Metoprolol to your pharmacy. Take Metoprolol 25mg two times a day. You can take this medication when you return home in the evening. You can check your heart rate at home and if your heart rate is less than 50 and you have associated dizziness or lightheadedness please contact your family doctor. We also sent a new medication called Eliquis to your pharmacy. Take Eliquis 5mg two times a day. You can take this medication when you return home in the evening. Please see additional education information regarding Eliquis below regarding side effects and warnings while taking this medication. Take your medications as instructed; do not skip a dose of your medicines. Make sure all of your doctors know every medicine you are taking (including ryjl-zlm-vaalbnh medicines, vitamins, and supplements). Call your primary care provider before taking any new medicines (including over- the-counter medicines, vitamins, and supplements), because some of these may interact with your current medications, or may make your symptoms worse. Tell your primary care provider if you cannot afford your medications. Activity: You can do normal everyday activities as your body allows. Take rest breaks if you feel tired. Do not overexert. Stop activity if you have pain, shortness of breath or feel dizzy. Follow-up appointments: Make an appointment with your primary care physician within one week of discharge. A copy of this summary will be sent to them. Every time you see your primary care physician, or any other doctor, bring your medication list, and a list of questions. CONTACT YOUR PRIMARY CARE PROVIDER if you experience any of the following: Shortness of breath or difficulty breathing Fevers or chills Feeling tired with normal activity or experiencing dizziness or fainting Difficulty following your treatment plan, or difficulty taking medications CALL 911 OR GO TO THE EMERGENCY DEPARTMENT if you experience any of the following: Severe abdominal pain or nausea/vomiting Severe chest pain, or chest pain that radiates (moves) to your jaw or arm Sudden, severe shortness of breath or difficulty breathing Here are some guidelines about taking Eliquis: Increased risk of blood clots if you stop taking Eliquis. Do not stop taking Eliquis without talking to your doctor.. Stopping Eliquis increases your risk of having a stroke. Increased risk of bleeding. Eliquis can cause bleeding which can be serious and may lead to . This is because Eliquis is a blood thinner medicine (anticoagulant) that lowers blood clotting. During treatment with Eliquis you are likely to bruise more easily, and it may take longer for bleeding to stop. If you ever cannot get bleeding to stop please report to the ER If you have a bruise that is large/painful or swollen you should also be seen by a medical provider Call your doctor or get medical help right away if you or your child develop any of these signs or symptoms of bleeding: unexpected bleeding or bleeding that lasts a long time, such as: nose bleeds that happen often unusual bleeding from the gums bleeding that is severe or you cannot control red, pink or brown urine bright red or black stools (looks like tar) cough up blood or blood clots vomit blood or your vomit looks like coffee grounds If you have a fall and hit your head, please come to the ER and get checked out. Being on a blood thinner increases your risk of brain bleeding with falls. Avoid high risk activities, such as: standing on tall ladders riding motorcycles anything where you are high risk for falls or trauma Avoid taking NSAIDs (pain medication) while you are taking a blood thinner. This includes: Ibuprofen, Aleve Advil, Naproxen. If you are ever unsure you can ask your doctor or pharmacist. Tylenol is SAFE to take. If you have any new or worsening chest pain or shortness of breath please return to the ER. Thank you for allowing us to participate in your care. Total Time Total Time Spent Total Time Spent (In Minutes): Time spent day of discharge 45 minutes including direct patient care, medication reconciliation, documentation, review of labs and images, and coordination of care. Time spent coordinating sleep medicine referral and Eliquis cost management with case management. Coding Level of Care Code 36963 INP/OBS DISCH >30 MIN Diagnoses Atrial fibrillation with RVR I48.91 Hypertension I10 Hypothyroidism E03.9 Interstitial cystitis N30.10"
--- NOTE | 2025-02-09 21:09 | Electrocardiogram Report ---
Test Reason : Blood Pressure : */* mmHG Vent. Rate : 143 BPM Atrial Rate : 82 BPM P-R Int : * ms QRS Dur : 112 ms QT Int : 300 ms P-R-T Axes : * -50 39 degrees QTcB Int : 463 ms Atrial fibrillation with rapid ventricular response Incomplete right bundle branch block Left anterior fascicular block Nonspecific ST abnormality Abnormal ECG No previous ECGs available Confirmed by Victorino Larson ([id number]) on 02/09/2025 9:09:02 PM Referred By: REFERRED SELF Confirmed By: Victorino Larson
--- NOTE | 2025-02-09 21:09 | Electrocardiogram Report ---
Test Reason : Blood Pressure : */* mmHG Vent. Rate : 93 BPM Atrial Rate : * BPM P-R Int : * ms QRS Dur : 96 ms QT Int : 358 ms P-R-T Axes : * -20 36 degrees QTcB Int : 445 ms Atrial fibrillation with premature ventricular or aberrantly conducted complexes Abnormal ECG When compared with ECG of 05-Feb-2025 10:17, Left anterior fascicular block is no longer Present ST no longer depressed in Anterior leads Confirmed by Victorino Larson ([id number]) on 02/09/2025 9:09:25 PM Referred By: REFERRED SELF Confirmed By: Victorino Larson
--- NOTE | 2025-02-09 21:10 | Electrocardiogram Report ---
Test Reason : Blood Pressure : */* mmHG Vent. Rate : 57 BPM Atrial Rate : 57 BPM P-R Int : 214 ms QRS Dur : 100 ms QT Int : 444 ms P-R-T Axes : 85 -36 30 degrees QTcB Int : 432 ms Sinus bradycardia with 1st degree A-V block Left axis deviation Incomplete right bundle branch block Abnormal ECG When compared with ECG of 05-Feb-2025 17:58, Nonspecific T wave abnormality no longer evident in Anterolateral leads Confirmed by Victorino Larson ([id number]) on 02/09/2025 9:10:09 PM Referred By: REFERRED SELF Confirmed By: Victorino Larson
--- NOTE | 2025-02-09 21:10 | Electrocardiogram Report ---
Test Reason : Blood Pressure : */* mmHG Vent. Rate : 75 BPM Atrial Rate : 75 BPM P-R Int : 196 ms QRS Dur : 100 ms QT Int : 378 ms P-R-T Axes : 92 -36 73 degrees QTcB Int : 422 ms Normal sinus rhythm Left axis deviation Incomplete right bundle branch block Nonspecific ST and T wave abnormality Abnormal ECG When compared with ECG of 05-Feb-2025 11:36, Sinus rhythm has replaced Atrial fibrillation Nonspecific T wave abnormality now evident in Anterolateral leads Confirmed by Victorino Larson ([id number]) on 02/09/2025 9:09:48 PM Referred By: REFERRED SELF Confirmed By: Victorino Larson
== END 2025-02-06 10:25 | disposition home or self-care (01) ==
LOC: ED 10:11 → INTOOBSV 12:37 → 2S 12:37 → SUATTDRO 12:37 → 2S 14:11